=== PATIENT | male | born 1985 | race Caucasian/White ===

== ENCOUNTER 2018-05-09 11:05 | Inpatient (IN) | payer MEDICAID ==
[~2018-05-09] VITALS: Ht 177.8 cm; Wt 94.1 kg
[2018-05-09] MEDS ORDERED: LORazepam 2 MG/ML, 1ML ONE (11:42)
[2018-05-09] MEDS ORDERED: LORazepam 2 MG/ML, 1ML IVPush ONE (12:00)
[2018-05-09] MEDS ORDERED: SODIUM CHLORIDE 0.9% 1,000ML IVBOLUS ONE (12:00)
[2018-05-09 12:38] LABS: BASOPHILS # (AUTO) 0.03 x10^3/uL (0-0.1); BASOPHILS % (AUTO) 0 % (0-1); EOSINOPHILS # (AUTO) 0.02 x10^3/uL (0-0.4); EOSINOPHILS % (AUTO) 0 % (1-7); LYMPHOCYTES # (AUTO) 0.92 x10^3/uL (1-3.4); LYMPHOCYTES % (AUTO) 13 % (22-44); MD SCAN; MEAN CORPUSCULAR HEMOGLOBIN 31.4 pg (27.5-34.5); MEAN CORPUSCULAR HGB CONC 34.2 g/dL (33.2-36.2); MEAN PLATELET VOLUME 7.9 fL (7.4-10.4); MONOCYTES # (AUTO) 1.07 x10^3/uL (0.2-0.8); MONOCYTES % (AUTO) 15 % (2-9); NEUTROPHILS # (AUTO) 5.15 x10^3/uL (1.8-6.8); NEUTROPHILS % (AUTO) 72 % (42-75); PLATELET COUNT 62 x10^3/uL (130-400); RED BLOOD COUNT 4.66 x10^6/uL (4.38-5.82); RED CELL DISTRIBUTION WIDTH 14.7 % (9.4-14.8)
[2018-05-09 12:40] LABS: CHLORIDE 97 mmol/L (98-107)
[2018-05-09 12:54] LABS: BARBITURATE SCREEN, URINE Negative (Negative); BENZODIAZEPINE SCREEN, URINE Negative (Negative); CANNABINOID SCREEN, URINE Negative (Negative)
[2018-05-09 12:55] LABS: AMPHETAMINE SCREEN, URINE Negative (Negative); COCAINE SCREEN, URINE Negative (Negative); METHADONE SCREEN, URINE Negative (Negative); OPIATE SCREEN, URINE Negative (Negative)
[2018-05-09 13:00] LABS: ALANINE AMINOTRANSFERASE 151 U/L (12-78); ALBUMIN 3.8 g/dL (3.4-5.0); ALKALINE PHOSPHATASE 121 U/L (45-117); ANION GAP 16 mmol/L (5-15); BILIRUBIN,TOTAL 0.9 mg/dL (0.2-1.0); CALCIUM 8.9 mg/dL (8.5-10.1); CREATININE 0.78 mg/dL (0.7-1.3); TOTAL PROTEIN 7.2 g/dL (6.4-8.2)
[2018-05-09] MEDS ORDERED: MAGNESIUM SULFATE PMX 2GM/50ML 50 ML IV ONE (14:00)
[2018-05-09] MEDS ORDERED: POTASSIUM CHLORIDE 20 MEQ TAB.ER.PRT PO ONE (14:00)
[2018-05-09] MEDS ORDERED: DIAZEPAM 5 MG/ML, 10ML VIAL IV ONE (14:00)
[2018-05-09] MEDS ORDERED: POTASSIUM CHLORIDE 20 MEQ TAB.ER.PRT ONE (14:19)
[2018-05-09 15:45] VITALS: BP 130/75
[2018-05-09] MEDS ORDERED: HYDR10TA4 PO (15:52)
[2018-05-09] MEDS ORDERED: GABA300C10 PO (15:52)
[2018-05-09] MEDS ORDERED: ONDANSETRON 2MG/ML, 2ML IVPush PRN (16:00)
[2018-05-09] MEDS ORDERED: MAGNESIUM SULFATE 4 GM in SODIUM CHLORIDE 0.9% 100 ML IV ONE (16:00)
[2018-05-09] MEDS ORDERED: MAGNESIUM SULFATE 6 GM in SODIUM CHLORIDE 0.9% 150 ML IV ONE (16:00)
[2018-05-09] MEDS ORDERED: POTASSIUM PHOSPHATE 44 MEQ in SODIUM CHLORIDE 0.9% 500 ML IV ONE (16:00)
[2018-05-09] MEDS ORDERED: ENALAPRILAT 1.25 MG/ML, 2ML IVPush PRN (16:00)
[2018-05-09] MEDS: LORazepam 2 MG/ML, 1ML IVPush PRN ×2 (16:01→20:59)
[2018-05-09] MEDS: HALOPERIDOL 5 MG/ML IM PRN (16:54)
[2018-05-09 18:32] VITALS: BP 130/80
[2018-05-09] MEDS: PANTOPRAZOLE 40 MG IV IVPush SCH (20:50)
[2018-05-09] MEDS: BACLOFEN 10 MG TABLET PO SCH (20:50)
[2018-05-09] MEDS: GABAPENTIN 300 MG CAPSULE PO PRN (20:51)
[2018-05-09] MEDS: FOLIC ACID IV SCH (21:56)
[2018-05-09] MEDS: [UNRECOGNIZED DRUG - OTHER] IV SCH (21:56)
[2018-05-09] MEDS: POTASSIUM CHLORIDE IV SCH (21:56)
[2018-05-09] MEDS: MVI ADULT IV SCH (21:56)
[2018-05-09] MEDS: THIAMINE IV SCH (21:56)
[2018-05-10] MEDS: HALOPERIDOL 5 MG/ML IM PRN (00:55)
[2018-05-10 02:13] VITALS: BP 138/84
[2018-05-10] MEDS: GABAPENTIN 300 MG CAPSULE PO PRN ×2 (06:22→15:59)
[2018-05-10] MEDS: LORazepam 2 MG/ML, 1ML IVPush PRN ×4 (06:22→22:08)
[2018-05-10] MEDS: D5%-0.45NACL+KCL 20MEQ 1,000 ML IV SCH ×3 (06:22→19:20)
[2018-05-10 06:24] LABS: CHLORIDE 101 mmol/L (98-107)
[2018-05-10 06:32] LABS: ALANINE AMINOTRANSFERASE 123 U/L (12-78); ALBUMIN 3.2 g/dL (3.4-5.0); ALKALINE PHOSPHATASE 123 U/L (45-117); ANION GAP 11 mmol/L (5-15); CALCIUM 8.6 mg/dL (8.5-10.1); CREATININE 0.72 mg/dL (0.7-1.3); TOTAL PROTEIN 6.6 g/dL (6.4-8.2)
[2018-05-10 07:00] VITALS: BP 129/78
[2018-05-10] MEDS: BACLOFEN 10 MG TABLET PO SCH ×2 (08:54→20:52)
[2018-05-10] MEDS: PANTOPRAZOLE 40 MG IV IVPush SCH ×2 (08:54→20:52)
[2018-05-10 12:00] VITALS: BP 138/87
[2018-05-10] MEDS ORDERED: LORazepam 2 MG/ML, 1ML ONE (13:38)
[2018-05-10] MEDS ORDERED: LORazepam 2 MG/ML, 1ML IVPush PRN (16:00)
[2018-05-10 19:23] VITALS: BP 158/99
[2018-05-10] MEDS ORDERED: LORazepam 2 MG/ML, 1ML IVPush ONE (21:00)
[2018-05-10] MEDS ORDERED: MAGNESIUM OXIDE 400 MG TABLET PO SCH (21:00)
[2018-05-10] MEDS: POTASSIUM CHLORIDE IV SCH (23:19)
[2018-05-10] MEDS: MVI ADULT IV SCH (23:19)
[2018-05-10] MEDS: THIAMINE IV SCH (23:19)
[2018-05-10] MEDS: [UNRECOGNIZED DRUG - OTHER] IV SCH (23:19)
[2018-05-10] MEDS: FOLIC ACID IV SCH (23:19)
[2018-05-11] MEDS ORDERED: FOLIC ACID 1 MG TABLET PO SCH (09:00)
[2018-05-11] MEDS ORDERED: THIAMINE 100MG TABLET PO SCH (09:00)
== END 2018-05-11 00:20 | disposition left against medical advice (07) | DRG 433 ==
LOC: ED 13:14 → EDIP 14:06 → 4WST 15:29
PROVIDERS: ADMIT Hospitalist; ATTEND Internal Medicine
DX: K70.10 Alcoholic hepatitis without ascites (principal); F10.231 Alcohol dependence with withdrawal delirium; E87.6 Hypokalemia; S80.212A Abrasion, left knee, initial encounter; E83.42 Hypomagnesemia; Z53.21 Procedure and treatment not carried out due to patient leaving prior to being seen by health care provider; G40.909 Epilepsy, unspecified, not intractable, without status epilepticus; W18.39XA Other fall on same level, initial encounter; G62.9 Polyneuropathy, unspecified; Z82.49 Family history of ischemic heart disease and other diseases of the circulatory system; Z90.49 Acquired absence of other specified parts of digestive tract; Y93.89 Activity, other specified; Y92.89 Other specified places as the place of occurrence of the external cause
CPT/HCPCS: 36415; 70450; 80053; 80074; 80307; 83735; 84100; 84443; 85025; 93005; 96374; 96375; 99285; G0378; J2405; J3360; J3411; J3475; J3480; J7070; C9113; J1630; J2060; J7030; J7040

== ENCOUNTER 2020-11-02 20:42 | Emergency (ER) | payer MEDICAID ==
[~2020-11-02] VITALS: Ht 175.3 cm; Wt 100.0 kg
[~2020-11-02 20:42] MED LIST: GABA300C10 PO; HYDR-2995 PO
--- NOTE | 2020-11-02 21:50 | NUR ---
pt BIB [facility] [place] [employer] with [place] ETOH pt admits to drinking "lots of sofia" tonight. denies drug use. pt has an abrasion to R side of forehead, no bleeding. no other obvious wounds. pt has tonya to posterior head that he states were placed here siderails up for safety. no family at bedside report to Ger PADGETT
--- NOTE | 2020-11-02 22:00 | NUR ---
REPORT FROM YUDELKA PADGETT
--- NOTE | 2020-11-02 22:29 | NUR ---
Break RN: pt sleeping in position of comfort. no apparent resp. distress
--- NOTE | 2020-11-02 22:34 | NUR ---
Break RN: Dr. Barnes at bedside for eval
--- NOTE | 2020-11-02 23:00 | NUR ---
REPORT FROM YUDEKLA PADGETT PATIENT IN CT-WILL EVAL ONCE HE RETURNS
--- NOTE | 2020-11-02 23:24 | NUR ---
WITH ASSESSMENT PATIENT DEEP ASLEEP EVEN AND UNLABORED CHEST RISE NOTED REMAINS IN C-COLLAR WILL CONTINUE TO MONITOR
--- NOTE | 2020-11-03 00:01 | NUR ---
WITH REASSESSMENT PATIENT CONTINUES TO BE DEEP ASLEEP EVEN AND UNLABORED CHEST RISE NOTED WILL ROUSE AT 0030 TO PO CHALLENGE/ROAD TEST
--- NOTE | 2020-11-03 00:43 | NUR ---
ATTEMPTED TO PO CHALLENGE- PATIENT MUCH TOO INTOXICATED UPDATED ON ESTIMATED POC
--- NOTE | 2020-11-03 02:05 | NUR ---
REPORT TO DELMAR PADGETT
--- NOTE | 2020-11-03 03:37 | NUR ---
RN REMOVED OLIVIA PT AMBULATED WITH STEADY GAIT, PT A/O X4, PT DID NOT WANT TO WAIT FOR D/C PAPERWORK AND LEFT TO DISCHARGE DESK
[2020-11-03 03:40] VITALS: BP 145/74
== END 2020-11-03 03:42 | disposition left against medical advice (07) ==
LOC: ED 11-03 03:03
DX: S09.90XA Unspecified injury of head, initial encounter (principal); F10.120 Alcohol abuse with intoxication, uncomplicated; Z48.02 Encounter for removal of sutures; F17.210 Nicotine dependence, cigarettes, uncomplicated; X58.XXXA Exposure to other specified factors, initial encounter; Y93.89 Activity, other specified; Y92.89 Other specified places as the place of occurrence of the external cause; Y99.8 Other external cause status
CPT/HCPCS: 70450; 72125; 99406